=== PATIENT | female | born 1960 | race Caucasian/White ===

== ENCOUNTER 2022-09-28 13:41 | Inpatient (IN) | payer OTHER ==
[~2022-09-28] VITALS: Ht 165.1 cm; Wt 68.0 kg
[2022-09-28] MEDS ORDERED: ASPIRIN 81 MG CHEW TAB PO ONE ×2 (14:00→15:30)
[2022-09-28] MEDS ORDERED: HYDRALAZINE HCL 20 MG/ML VIAL IV STA (14:06)
[2022-09-28] MEDS ORDERED: SODIUM CHLORIDE FLUSH 10 ML SYR IV PRN (14:15)
[2022-09-28 14:31] LABS: BASOPHILS # (AUTO) 0.1 (0.0-0.1); BASOPHILS % 0.9 % (0.0-1.0); EOSINOPHILS # (AUTO) 0.1 (0.0-0.4); EOSINOPHILS % 1.3 % (0.0-6.0); HEMATOCRIT 46.4 % (34.2-44.1); HEMOGLOBIN 15.3 g/dL (12.0-16.0); LYMPHOCYTES # (AUTO) 2.3 (1.0-3.2); LYMPHOCYTES % 33.6 % (18.0-39.1); MEAN CORPUSCULAR HEMOGLOBIN 32.5 pg (28-32); MEAN CORPUSCULAR VOLUME 98.5 fL (81-99); MONOCYTES # (AUTO) 0.6 (0.2-0.8); NEUTROPHILS # (AUTO) 3.9 (2.1-6.9); NEUTROPHILS % 56.1 % (38.7-80.0); PLATELET COUNT 275 x10e3/uL (140-360); RED BLOOD COUNT 4.71 x10e6/uL (3.6-5.1); RED CELL DISTRIBUTION WIDTH 12.2 % (11.7-14.4)
[2022-09-28 14:43] LABS: INR 0.89; PARTIAL THROMBOPLASTIN TIME 28.1 seconds (23.8-35.5); PROTHROMBIN TIME 12.3 seconds (11.9-14.5)
[2022-09-28 14:50] LABS: ALANINE AMINOTRANSFERASE 19 IU/L (0-55); ALBUMIN 4.7 g/dL (3.5-5.0); ALBUMIN/GLOBULIN RATIO 1.5 (0.8-2.0); ALKALINE PHOSPHATASE 77 IU/L (40-150); ANION GAP 15.7 mmol/L (8-16); BLOOD UREA NITROGEN 13 mg/dL (7-26); BUN/CREATININE RATIO 14 (6-25); CALCIUM 10.1 mg/dL (8.4-10.2); CARBON DIOXIDE 24 mmol/L (22-29); CHLORIDE 104 mmol/L (98-107); CREATININE, SERUM 0.95 mg/dL (0.57-1.11); GLUCOSE 88 mg/dL (74-118); POTASSIUM 3.7 mmol/L (3.5-5.1); SODIUM 140 mmol/L (136-145)
[2022-09-28 15:16] LABS: CLARITY,URINE CLEAR (CLEAR); COLOR,URINE YELLOW (YELLOW); KETONES,URINE NEGATIVE (NEGATIVE); LEUKOCYTE ESTERASE ,URINE MODERATE (NEGATIVE); NITRITE,URINE NEGATIVE (NEGATIVE); PROTEIN,URINE DIPSTICK NEGATIVE (NEGATIVE); URINE UROBILINOGEN 0.2 mg/dL (0.2 - 1)
[2022-09-28 15:30] LABS: BACTERIA,URINE MODERATE /HPF; EPITHELIAL CELLS,URINE FEW /LPF; RENAL EPITHELIAL CELLS,URINE RARE
[2022-09-28] MEDS ORDERED: SODIUM CHLORIDE FLUSH 10 ML SYR INJ PRN (15:30)
[2022-09-28] MEDS ORDERED: ONDANSETRON HCL INJ 2MG/ML 2ML 2 MG/ML VIAL IV PRN (15:30)
[2022-09-28] MEDS ORDERED: SYNTHROID125 MCG PO (20:41)
[2022-09-28] MEDS ORDERED: DIOVAN80 MG PO (20:42)
[2022-09-28] MEDS ORDERED: CRESTOR10 MG PO (20:45)
[2022-09-28 21:02] VITALS: BP 170/83
[2022-09-28] MEDS ORDERED: HYDRALAZINE HCL 20 MG/ML VIAL IV PRN (21:30)
[2022-09-28] MEDS: VALSARTAN 80 MG TAB PO SCH (22:17)
[2022-09-28] MEDS: ACETAMINOPHEN 325 MG TAB PO PRN (22:18)
[2022-09-28 23:18] VITALS: BP 170/83
[2022-09-29] VITALS: BP 126/65
[2022-09-29 04:00] VITALS: BP 112/66
[2022-09-29 05:03] LABS: BASOPHILS # (AUTO) 0.1 (0.0-0.1); BASOPHILS % 1.1 % (0.0-1.0); EOSINOPHILS # (AUTO) 0.1 (0.0-0.4); EOSINOPHILS % 1.8 % (0.0-6.0); HEMATOCRIT 43.1 % (34.2-44.1); HEMOGLOBIN 14.2 g/dL (12.0-16.0); LYMPHOCYTES % 31.9 % (18.0-39.1); MEAN CORPUSCULAR HEMOGLOBIN 32.2 pg (28-32); MEAN CORPUSCULAR HGB CONC 32.9 g/dL (31-35); MEAN CORPUSCULAR VOLUME 97.7 fL (81-99); MONOCYTES # (AUTO) 0.6 (0.2-0.8); MONOCYTES % 9.1 % (4.4-11.3); NEUTROPHILS # (AUTO) 3.5 (2.1-6.9); NEUTROPHILS % 55.8 % (38.7-80.0); PLATELET COUNT 262 x10e3/uL (140-360); RED BLOOD COUNT 4.41 x10e6/uL (3.6-5.1); RED CELL DISTRIBUTION WIDTH 12.2 % (11.7-14.4)
[2022-09-29 05:25] LABS: ALBUMIN 4.1 g/dL (3.5-5.0); ALBUMIN/GLOBULIN RATIO 1.6 (0.8-2.0); ANION GAP 12.8 mmol/L (8-16); CALCIUM 9.9 mg/dL (8.4-10.2); CREATININE, SERUM 0.84 mg/dL (0.57-1.11); POTASSIUM 3.8 mmol/L (3.5-5.1)
[2022-09-29 08:00] VITALS: BP 128/66
[2022-09-29 08:20] VITALS: BP 112/66
[2022-09-29 08:25] LABS: THYROID STIMULATING HORMONE 0.54 uIU/mL (0.350-4.940)
[2022-09-29] MEDS: VALSARTAN 80 MG TAB PO SCH (08:48)
[2022-09-29] MEDS: CLOPIDOGREL BISULFATE 75 MG TAB PO SCH (08:48)
[2022-09-29] MEDS: ASPIRIN 325 MG TAB EC PO SCH (08:48)
[2022-09-29] MEDS ORDERED: IOPAMIDOL 370 MG/ML 100 ML INFUS..BTL INJ ONE (09:29)
[2022-09-29] MEDS ORDERED: SODIUM CHLORIDE 0.9% 100 ML ONE (09:29)
[2022-09-29 12:00] VITALS: BP 124/78
[2022-09-29 16:00] VITALS: BP 125/70
[2022-09-29] MEDS: ATORVASTATIN 40 MG TAB PO SCH (20:15)
[2022-09-30 06:21] VITALS: BP 125/70
[2022-09-30 07:55] VITALS: BP 125/70
[2022-09-30 08:30] VITALS: BP 104/71
[2022-09-30] MEDS: VALSARTAN 80 MG TAB PO SCH (08:46)
[2022-09-30] MEDS: CLOPIDOGREL BISULFATE 75 MG TAB PO SCH (08:46)
[2022-09-30] MEDS: ASPIRIN 325 MG TAB EC PO SCH (08:46)
[2022-09-30] MEDS ORDERED: CLOPIDOGREL BISULFATE 75 MG TAB PO ONE (10:30)
[2022-09-30 11:59] VITALS: BP 139/75
[2022-09-30 15:39] VITALS: BP 138/72
[2022-09-30] MEDS: ATORVASTATIN 40 MG TAB PO SCH (19:46)
[2022-09-30 19:50] VITALS: BP 147/87
[2022-09-30] MEDS ORDERED: IOPAMIDOL 370 MG/ML 100 ML INFUS..BTL INJ ONE (21:01)
[2022-10-01] VITALS (8 sets, daily range): BP systolic 117–147; BP diastolic 61–87
[2022-10-01] MEDS: ACETAMINOPHEN 325 MG TAB PO PRN (05:12)
[2022-10-01 05:48] LABS: BASOPHILS # (AUTO) 0.1 (0.0-0.1); BASOPHILS % 1.2 % (0.0-1.0); EOSINOPHILS # (AUTO) 0.1 (0.0-0.4); EOSINOPHILS % 1.7 % (0.0-6.0); HEMATOCRIT 42.7 % (34.2-44.1); HEMOGLOBIN 14.2 g/dL (12.0-16.0); LYMPHOCYTES # (AUTO) 2.4 (1.0-3.2); LYMPHOCYTES % 33.1 % (18.0-39.1); MEAN CORPUSCULAR HEMOGLOBIN 32.5 pg (28-32); MEAN CORPUSCULAR HGB CONC 33.3 g/dL (31-35); MEAN CORPUSCULAR VOLUME 97.7 fL (81-99); MONOCYTES # (AUTO) 0.8 (0.2-0.8); MONOCYTES % 10.8 % (4.4-11.3); NEUTROPHILS # (AUTO) 3.8 (2.1-6.9); NEUTROPHILS % 52.9 % (38.7-80.0); PLATELET COUNT 267 x10e3/uL (140-360); RED BLOOD COUNT 4.37 x10e6/uL (3.6-5.1); RED CELL DISTRIBUTION WIDTH 12.2 % (11.7-14.4)
[2022-10-01 06:17] LABS: ALBUMIN 4.1 g/dL (3.5-5.0); ALBUMIN/GLOBULIN RATIO 1.5 (0.8-2.0); ANION GAP 13.7 mmol/L (8-16); CALCIUM 9.3 mg/dL (8.4-10.2); CREATININE, SERUM 0.86 mg/dL (0.57-1.11); POTASSIUM 3.7 mmol/L (3.5-5.1)
[2022-10-01 06:44] LABS: THYROID STIMULATING HORMONE 1.175 uIU/mL (0.350-4.940)
[2022-10-01] MEDS: CLOPIDOGREL BISULFATE 75 MG TAB PO SCH (08:19)
[2022-10-01] MEDS: ASPIRIN 325 MG TAB EC PO SCH (08:19)
[2022-10-01] MEDS ORDERED: VALSARTAN 80 MG TAB PO SCH (09:00)
[2022-10-01] MEDS ORDERED: ONDANSETRON HCL 4 MG ORAL DISINTEGRATING TAB PO PRN (09:45)
[2022-10-01] MEDS: ATORVASTATIN 40 MG TAB PO SCH (20:49)
[2022-10-02 06:15] VITALS: BP 118/96
[2022-10-02 06:16] VITALS: BP 118/96
[2022-10-02 06:19] VITALS: BP 105/65
[2022-10-02] MEDS ORDERED: LEVOTHYROXINE SODIUM 125 MCG TAB PO SCH (06:30)
[2022-10-02 07:35] LABS: BASOPHILS # (AUTO) 0.1 (0.0-0.1); BASOPHILS % 0.9 % (0.0-1.0); EOSINOPHILS # (AUTO) 0.1 (0.0-0.4); EOSINOPHILS % 1.6 % (0.0-6.0); LYMPHOCYTES # (AUTO) 1.8 (1.0-3.2); LYMPHOCYTES % 27.8 % (18.0-39.1); MEAN CORPUSCULAR HEMOGLOBIN 32.1 pg (28-32); MEAN CORPUSCULAR HGB CONC 32.6 g/dL (31-35); MEAN CORPUSCULAR VOLUME 98.6 fL (81-99); MONOCYTES # (AUTO) 0.7 (0.2-0.8); NEUTROPHILS # (AUTO) 3.7 (2.1-6.9); NEUTROPHILS % 58.4 % (38.7-80.0); PLATELET COUNT 249 x10e3/uL (140-360); RED BLOOD COUNT 4.36 x10e6/uL (3.6-5.1); RED CELL DISTRIBUTION WIDTH 12.4 % (11.7-14.4)
[2022-10-02 07:43] VITALS: BP 116/68
[2022-10-02 07:53] LABS: ANION GAP 13.2 mmol/L (8-16); CALCIUM 9.2 mg/dL (8.4-10.2); CREATININE, SERUM 0.89 mg/dL (0.57-1.11); POTASSIUM 4.2 mmol/L (3.5-5.1)
[2022-10-02 08:10] VITALS: BP 116/68
[2022-10-02] MEDS: ASPIRIN 325 MG TAB EC PO SCH (08:32)
[2022-10-02] MEDS: CLOPIDOGREL BISULFATE 75 MG TAB PO SCH (08:34)
[2022-10-02 11:10] VITALS: BP 151/78
[2022-10-02] MEDS ORDERED: CRESTOR 10MG PO SCH (21:00)
== END 2022-10-02 12:37 | disposition home or self-care (01) | DRG 66 ==
LOC: ER 13:49 → ERHOLD 15:31 → MED/SURG2 20:00 → OBSVTOIN 09-30 09:41
PROVIDERS: ADMIT Internal Medicine; ATTEND Internal Medicine
DX: I63.232 Cerebral infarction due to unspecified occlusion or stenosis of left carotid arteries (principal); R47.9 Unspecified speech disturbances; G83.21 Monoplegia of upper limb affecting right dominant side; I10 Essential (primary) hypertension; E03.9 Hypothyroidism, unspecified; E78.5 Hyperlipidemia, unspecified; F17.200 Nicotine dependence, unspecified, uncomplicated; E78.00 Pure hypercholesterolemia, unspecified; Z20.822 Contact with and (suspected) exposure to COVID-19; Z79.82 Long term (current) use of aspirin; Z79.02 Long term (current) use of antithrombotics/antiplatelets
CPT/HCPCS: 36415; 70450; 70496; 70498; 70551; 71045; 80048; 80053; 80061; 81001; 83880; 84443; 84484; 85025; 85610; 85651; 85730; 93005; 93306; 94760; 95819; 99284; G0378; J0360; J7050; Q9967